=== PATIENT | male | born 1940 | race Caucasian/White ===

== ENCOUNTER → 2018-07-21 15:32 | Outpatient (CLI) | payer OTHER, SELFPAY ==
--- NOTE | 2018-07-21 | DI.RAD.S_ITS ---
PROCEDURE: XR CHEST 2V INDICATIONS: Cough TECHNIQUE: 2 views of the chest were acquired. COMPARISON: None. FINDINGS: Surgical changes and devices: None. Lungs and pleura: No pleural effusions or pneumothorax. Lungs are clear, with interstitial prominence. Mediastinum: Mediastinal contours are normal. Heart size is normal. Descending aorta is tortuous. Bones and chest wall: No suspicious bony abnormalities. Soft tissues appear unremarkable. IMPRESSION: Mild interstitial prominence and hyperinflated lungs in keeping with chronic obstructive physiology. No acute cardiopulmonary disease. Dictated by: Dominic Kidd [facility] Interpreted: Shahzad Null MD on 07/21/2018 at 15:53 Approved by: Shahzad Null M.D. on 07/21/2018 at 16:45
== END ==
PROVIDERS: PCP Family Medicine; Visit Provider Family Medicine
DX: R05 Cough (principal)
CPT/HCPCS: 71046

== ENCOUNTER → 2018-08-01 07:23 | Outpatient (CLI) | payer OTHER, SELFPAY ==
--- NOTE | 2018-08-08 14:31 | PM.PFT.1 ---
Pulmonary Function Test Referral & Results Date Patient Seen: 08/01/18 Requesting provider: Radha Watts Indication: COPD Results: The spirometry demonstrates an FVC of 4.29 L which is 106% of predicted. The FEV1 was measured at 2.54 L which is 87% of predicted. The FEV1/FVC ratio was 59 which is 82% of predicted. Following the administration of bronchodilator there was a 20% improvement in FEF 25-75%. Lung volumes show an SVC of 4.61 L which is 104% of predicted. The diffusing capacity was measured at 23.17 which is 71% of predicted. No hemoglobin value was provided, so no correction for potential anemia could be made, if appropriate. The maximum voluntary ventilation was normal Interpretation: This study demonstrates mild obstructive lung disease with some limited evidence of benefit following bronchodilator administration, primarily in small airway flow based on improvement in FEF 25-75% There is also mild abnormality at the capillary alveolar level based on diffusing capacity Clinical correlation suggested
== END ==
PROVIDERS: PCP Family Medicine; Visit Provider Family Medicine
DX: J44.9 Chronic obstructive pulmonary disease, unspecified (principal)
CPT/HCPCS: 94060; 94726; 94729

== ENCOUNTER → 2019-04-14 14:27 | Outpatient (CLI) | payer OTHER, SELFPAY ==
--- NOTE | 2019-04-14 | DI.US.S_ITS ---
PROCEDURE: US SCROTUM INDICATIONS: PAIN IN SCROTUM TECHNIQUE: Real-time scanning was performed of the scrotum and testicles, with image documentation. Color and pulse Doppler interrogation was performed of both testicles. COMPARISON: None. FINDINGS: Right: Testicle is normal in size at 4.6 x 2.4 x 2.0 cm, and homogenous in echotexture. Epididymis is normal in overall size and morphology. No hydrocele or varicoceles. Overlying scrotal skin is normal in thickness. Left: Testicle is normal in size at 3.2 x 2.8 x 1.9 cm, and homogeneous in echotexture. Epididymis is enlarged, heterogeneous with what appears to be multiloculated small fluid collection measuring 1.2 x 1.1 x 0.8 cm. Small punctate echogenic foci present within the fluid collection which could represent internal gas. No hydrocele or varicoceles. Overlying scrotal skin is normal in thickness. Doppler: Color and pulse Doppler demonstrate normal and symmetric arterial flow in both testicles. IMPRESSION: 1. Normal appearance of the testicles bilaterally. 2. Abnormal appearance of the left epididymis which is enlarged, heterogeneous, hypervascular with loculated appearing fluid collection which possibly contains gas. Developing epididymal abscess cannot be excluded and close clinical correlation and followup is recommended. Cindi Franks RN for Dr. Miranda was given the report and recommendations at 1627 hrs. 04/14/2019. Dictated by: Dominic CORREA Interpreted: Jaylin Sandoval MD on 04/14/2019 at 15:51 Approved by: Jaylin Sandoval MD, PhD on 04/14/2019 at 18:10
== END ==
PROVIDERS: PCP Family Medicine; Visit Provider Urology
DX: N50.82 Scrotal pain (principal)
CPT/HCPCS: 76870

== ENCOUNTER → 2019-09-24 11:55 | Outpatient (CLI) | payer OTHER, SELFPAY ==
--- NOTE | 2019-09-24 | DI.US.S_ITS ---
PROCEDURE: US SCROTUM INDICATIONS: TESTICULAR PAIN TECHNIQUE: Real-time scanning was performed of the scrotum and testicles, with image documentation. Color and pulse Doppler interrogation was performed of both testicles. COMPARISON: [facility], , US SCROTUM, 04/14/2019, 15:17. FINDINGS: Right: Testicle is normal in size at 4.2 x 1.6 x 2.8 cm, and homogenous in echotexture. Epididymis is normal in overall size and morphology. Mildly heterogeneous echotexture. Small 4 mm simple epididymal cyst is noted. No hydrocele or varicoceles. Overlying scrotal skin is normal in thickness. Left: Testicle is normal in size at 3.0 x 2.0 x 2.7 cm, and homogeneous in echotexture. Epididymis remains heterogeneous in echotexture and prominent in size with a persistent heterogeneous solid-appearing mass measuring 1.5 x 1.4 x 2.1 cm. There is internal vascularity. This is slightly increased in size compared to prior study which previously measured 1.2 x 1.1 x 0.8 cm. There are internal coarse and fine punctate echogenicities which may represent calcifications versus possible air. No hydrocele noted. Small varicoceles present. Overlying scrotal skin is normal in thickness. Doppler: Color and pulse Doppler demonstrate normal and symmetric arterial flow in both testicles. IMPRESSION: 1. Interval increase in size of a now more solid appearing epididymal/extratesticular mass with internal vascularity measuring up to 1.5 cm in size versus 1.2 cm previously. This was previously thought to represent a possible abscess; however, a neoplastic process is also included in the differential diagnosis given its persistence and enlargement over time. Persistent abscess remains a consideration given persistent symptoms/pain. Recommend further evaluation with urology consultation. 2. Small left varicocele. Dictated by: Jose Alfredo Diaz M.D. on 09/24/2019 at 22:32 Approved by: Jose Alfredo Diaz M.D. on 09/25/2019 at 14:18
== END ==
PROVIDERS: PCP Family Medicine; Visit Provider Urology
DX: N50.819 Testicular pain, unspecified (principal); N50.9 Disorder of male genital organs, unspecified; I86.1 Scrotal varices
CPT/HCPCS: 76870

== ENCOUNTER → 2019-10-12 13:29 | Outpatient (CLI) | payer OTHER, SELFPAY ==
--- NOTE | 2019-10-12 | DI.US.S_ITS ---
PROCEDURE: US SCROTUM INDICATIONS: TESTICULAR PAIN TECHNIQUE: Real-time scanning was performed of the scrotum and testicles, with image documentation. Color and pulse Doppler interrogation was performed of both testicles. COMPARISON: [facility], US SCROTUM, 04/14/2019, 15:17. [facility], , US SCROTUM, 09/24/2019, 12:23. FINDINGS: Right: Testicle is normal in size at 4.4 x 1.5 x 2.7 cm, and homogenous in echotexture. Incidental epididymal cyst/spermatocele measuring 5 x 4 x 4 mm. No hydrocele or varicoceles. Overlying scrotal skin is normal in thickness. Left: Testicle is normal in size at 4.0 x 1.6 x 2.4 cm, and homogeneous in echotexture. There is heterogeneous mass or thickening involving the epididymis with hyperemia. This measures 1.5 x 1.4 x 1.6 cm, previously 2.1 x 1.5 x 1.4 cm although intrinsic inter-examination variability may be a factor. No hydrocele. There is a varicocele measuring 4 mm. Overlying scrotal skin is normal in thickness. Doppler: Color and pulse Doppler demonstrate normal and symmetric arterial flow in both testicles. IMPRESSION: Left epididymal thickening versus mass as before. Hyperemic appearance is again noted. Differential remains infectious/inflammatory epididymitis and/or phlegmon although cannot exclude neoplasm. Please correlate clinically and with urinalysis data. Given long-term persistence, consider surgical management for definitive evaluation as clinically warranted. 4 mm left-sided varicocele 5 mm right epididymal cyst/spermatocele Dictated by: Shahzad Null M.D. on 10/12/2019 at 16:19 Approved by: Shahzad Null M.D. on 10/12/2019 at 16:26
== END ==
PROVIDERS: PCP Family Medicine; Referring Provider Urology; Visit Provider Urology
DX: N50.819 Testicular pain, unspecified (principal); I86.1 Scrotal varices; N50.3 Cyst of epididymis
CPT/HCPCS: 76870

== ENCOUNTER → 2019-11-03 07:52 | Outpatient (CLI) | payer OTHER, SELFPAY ==
--- NOTE | 2019-11-03 | DI.MRI.S_ITS ---
PROCEDURE: MR HEAD/BRAIN WO CON INDICATIONS: Mild cognitive impairment, so stated TECHNIQUE: Non-contrast axial T1 spin echo, axial T2 fast spin echo, sagittal and axial FLAIR, coronal T2 fast spin echo, axial gradient echo, axial diffusion and ADC through the brain. COMPARISON: None. FINDINGS: Image quality: Motion degraded examination CSF spaces: Ventricles appear symmetric in size and shape. Basal cisterns are patent. No extra-axial fluid collections. Brain: No intracranial bleeds or mass effects. There is cerebral volume loss for age. There are periventricular and deep white matter chronic small vessel ischemic changes. Brainstem appears normal. Diffusion-weighted images show no acute ischemic insults. No chronic ischemic insults. Normal intravascular flow voids are present. Skull and face: Calvarial bone marrow is normal in signal. Orbits are normal. Sinuses: Sinuses and mastoids are clear except for minimal left sphenoid sinus mucosal thickening.. IMPRESSION: Motion degraded examination No acute ischemia. No acute intracranial signal abnormality Diffuse small white matter changes, probably represent chronic microvascular ischemic disease, versus statistically less likely demyelination or other infectious, inflammatory, neurodegenerative etiology, technically nonspecific. Dictated by: Shahzad Null M.D. on 11/03/2019 at 9:14 Approved by: Shahzad Null M.D. on 11/03/2019 at 9:31
== END ==
PROVIDERS: PCP Family Medicine; Referring Provider Family Medicine; Visit Provider Family Medicine
DX: G31.84 Mild cognitive impairment of uncertain or unknown etiology
CPT/HCPCS: 70551

== ENCOUNTER 2019-12-09 15:04 | Emergency (ER) | payer OTHER, SELFPAY ==
[2019-12-09 15:05] VITALS: BP 184/84; PULSE 83; RESP 17; TEMP 36.5; O2SAT 100
[2019-12-09] MEDS: LIDOCAINE 2% (UROJET) 5 ML GEL TOP (15:20)
--- NOTE | 2019-12-09 15:40 | PC.NURSE ---
This RN attempt to place Villalta Catheter with Gomez MORRISON. unable to pass catheter into bladder. Together we attempted regular 16f catheter, 16 fr coude cath, and 14 fr. Unable to pass any. Provider notified.
--- NOTE | 2019-12-09 16:21 | PC.NURSE ---
attempted vail placement w/ lidocaine pre medication. Unable to pass vail to bladder.
[2019-12-09 16:28] LABS: Appearance Urine UA CLEAR; Bilirubin Urine UA NEGATIVE (NEGATIVE); Color Urine UA YELLOW; Glucose Urine UA NEGATIVE (Negative); Ketones Urine UA NEGATIVE (NEGATIVE); Leukocyte Esterase Urine UA 2+ (NEGATIVE); Nitrite Urine UA NEGATIVE (Negative); Occult Blood Urine UA 2+ (Negative); Protein Urine UA NEGATIVE (Negative); Urobilinogen Urine UA 0.2 E.U./dL (0.2)
[2019-12-09 16:38] LABS: Bacteria Urine Occasional (0-1); Culture Indicated Urine Specimen Cultured; RBC Urine 1-5/HPF (0-5/HPF); WBC Urine 1-5/HPF (0-5/HPF)
--- NOTE | 2019-12-09 16:38 | ED_ITS ---
HPI - Male Genitourinary <KUMAR Yuan - Last Filed: 12/09/19 17:21> General Chief complaint: Urogenital-Male Stated complaint: trouble urinating past few days Time Seen by Provider: 12/09/19 15:11 Source: patient Mode of arrival: Ambulatory Limitations: no limitations History of Present Illness HPI Narrative: The patient is an 79-year-old male current smoker with history of epididymal abscess who presents with a chief complaint of inability to urinate. He states that he has had urinary issues for the past several days better worse than usual. He tried to straight cath himself, but could not ?get the catheter in all the way.He states that he has been unable to drain any urine all day today. Denies any dysuria urgency or frequency. He does complain of lower abdominal pain, related to urinary retention. Related Data Home Medications Medication Instructions Recorded Confirmed hydrochlorothiazide Q DAY #0 07/21/16 simvastatin 20 mg PO QDAY #0 08/17/17 Previous Rx's Medication Instructions Recorded tamsulosin [Flomax] 0.4 mg PO QDAY #7 cap 08/16/17 Allergies Allergy/AdvReac Type Severity Reaction Status Date / Time No Known Allergies Allergy Uncoded 12/04/17 12:39 Review of Systems <KUMAR Yuan - Last Filed: 12/09/19 17:21> Review of Systems Narrative: GENERAL: Denies chills, fatigue, malaise, fever, sweats. HEENT: Denies sinus pain, ear pain, sore throat, difficulty swallowing, dizziness. RESPIRATORY: Denies dyspnea, cough, wheezing, hemoptysis, sputum. CARDIOVASCULAR: Denies chest pain, palpitations, orthopnea, edema, GASTROINTESTINAL: Denies nausea, vomiting, abdominal pain, diarrhea, constipation, melena. : See HPI MUSCULOSKELETAL: denies weakness, joint pain, or bony pain SKIN: Denies rash, skin lesions, or other NEUROLOGIC: Denies weakness, headache, numbness, change in speech, confusion, seizures, incoordination. PSYCHIATRIC: No concerning psychosocial issues. 12 point review of systems is negative except for those stated above Patient History <KUMAR Yuan - Last Filed: 12/09/19 17:21> Social History Smoking Status: Never smoker Smoking Status: Never smoker alcohol intake frequency: 0-2 drinks per day Substance Use Type: does not use Exam <KUMAR Yuan - Last Filed: 12/09/19 17:21> Narrative Exam Narrative: GENERAL: This is a well-nourished, well-developed patient, in no acute distress HEAD: Atraumatic. Normocephalic. No temporal or scalp tenderness. EYES: Pupils equal round and reactive. Extraocular motions intact. No scleral icterus. No injection or drainage. ENT: Nose without bleeding, purulent drainage or septal hematoma. Throat without erythema, tonsillar hypertrophy or exudate. Uvula midline. Airway patent. NECK: Trachea midline. No JVD or lymphadenopathy. Supple, nontender, no meningeal signs. CARDIOVASCULAR: Regular rate and rhythm RESPIRATORY: Clear to auscultation. Breath sounds equal bilaterally. No wheezes, rales, or rhonchi. No cough. No increased respiratory effort. No accessory muscle use. GASTROINTESTINAL: Abdomen soft, non-tender, nondistended. No hepato- splenomegaly, or palpable masses. No guarding. EXTREMITIES: No clubbing, cyanosis, or edema. No joint tenderness, effusion, or edema noted. BACK: Nontender without deformity or crepitance. No flank tenderness. NEURO: AOx3. SKIN: No rash or erythema visible skin Initial Vital Signs Initial Vital Signs: Vital Signs Temperature 97.7 F 12/09/19 15:05 Pulse Rate 83 12/09/19 15:05 Respiratory Rate 17 12/09/19 15:05 Blood Pressure 184/84 H 12/09/19 15:05 Pulse Oximetry 100 12/09/19 15:05 <Dimitris Castillo DO - Last Filed: 12/09/19 17:23> Initial Vital Signs Initial Vital Signs: Vital Signs Temperature 97.7 F 12/09/19 15:05 Pulse Rate 83 12/09/19 15:05 Respiratory Rate 17 12/09/19 15:05 Blood Pressure 184/84 H 12/09/19 15:05 Pulse Oximetry 100 12/09/19 15:05 Course <KUMAR Yuan - Last Filed: 12/09/19 17:21> Orders Ordered: ED Orders 12/09/19 16:14 Urinalysis and Microscopic Stat Urine Culture Stat Discontinued Medications Lidocaine HCl (Urojet) 5 ml TOP NOW ONE Stop: 12/09/19 15:41 Last Admin: 12/09/19 15:20 Dose: 5 ml Documented by: [email or web address] Vital Signs Vital signs: Vital Signs - 8 hr 12/09/19 15:05 12/09/19 17:07 Temperature 97.7 F Pulse Rate 83 86 Respiratory Rate 17 Blood Pressure 184/84 H 183/82 H Pulse Oximetry 100 99 <Dimitris Castillo DO - Last Filed: 12/09/19 17:23> Orders Ordered: ED Orders 12/09/19 16:14 Urinalysis and Microscopic Stat Urine Culture Stat Discontinued Medications Lidocaine HCl (Urojet) 5 ml TOP NOW ONE Stop: 12/09/19 15:41 Last Admin: 12/09/19 15:20 Dose: 5 ml Documented by: MIGUEL Vital Signs Vital signs: Vital Signs - 8 hr 12/09/19 15:05 12/09/19 17:07 Temperature 97.7 F Pulse Rate 83 86 Respiratory Rate 17 Blood Pressure 184/84 H 183/82 H Pulse Oximetry 100 99 MDM - Male Genitourinary <LEILA Yuan- - Last Filed: 12/09/19 17:21> Lab Data Labs: Lab Results 12/09/19 Range/Units 16:14 Urine Color Yellow Urine Appearance Clear Urine pH 7.0 (4.5-8.0) Ur Specific [place] 1.010 (1.000-1.035) Urine Protein Negative (Negative) Urine Glucose (UA) Negative (Negative) g/dL Urine Ketones Negative (NEGATIVE) Urine Occult Blood 2+ H (Negative) Urine Nitrate Negative (Negative) Urine Bilirubin Negative (NEGATIVE) Urine Urobilinogen 0.2 (0.2) E.U./dL Ur Leukocyte Esterase 2+ H (NEGATIVE) Urine RBC 1-5/hpf (0-5/HPF) Urine WBC 1-5/hpf (0-5/HPF) Urine Bacteria Occasional (0-1) (None) Ur Culture Indicated? Specimen cultured MDM Narrative Medical decision making narrative: The patient is an 79-year-old male who presents with a chief complaint of urinary retention. He is a patient of Dr Shane from [facility]. He several nurses had difficulty passing a catheter, so I spoke with her, who states that she recommended the patient be seen in clinic today for Villalta catheter placement. I spoke with Dr. Soriano from [facility] emergency department who accepted the patient for transfer by POV. Dr. Shane plan on seeing the patient in the emergency department. Patient state understanding and have no questions or concerns. EMTALA form filled out. <Dimitris Castillo DO - Last Filed: 12/09/19 17:23> Lab Data Labs: Lab Results 12/09/19 Range/Units 16:14 Urine Color Yellow Urine Appearance Clear Urine pH 7.0 (4.5-8.0) Ur Specific [place] 1.010 (1.000-1.035) Urine Protein Negative (Negative) Urine Glucose (UA) Negative (Negative) g/dL Urine Ketones Negative (NEGATIVE) Urine Occult Blood 2+ H (Negative) Urine Nitrate Negative (Negative) Urine Bilirubin Negative (NEGATIVE) Urine Urobilinogen 0.2 (0.2) E.U./dL Ur Leukocyte Esterase 2+ H (NEGATIVE) Urine RBC 1-5/hpf (0-5/HPF) Urine WBC 1-5/hpf (0-5/HPF) Urine Bacteria Occasional (0-1) (None) Ur Culture Indicated? Specimen cultured Discharge Plan Departure Patient Disposition: [facility] Clinical Impression: Urinary retention Discharge Date/Time: 12/09/19 17:10 Activity Restrictions/Additional Instructions: Thank you for trusting us with your care today. Please proceed to [facility] emergency department. I have spoken with Dr. Soriano and Dr. Shane regarding your care. They will be expecting you in the emergency department Prescriptions: No Action hydrochlorothiazide 25 MG tablet Q DAY Qty: 0 RF: 0 tamsulosin [Flomax] 0.4 MG capsule,extended release 24hr 0.4 mg PO QDAY Qty: 7 RF: 0 simvastatin 20 MG tablet 20 mg PO QDAY Qty: 0 RF: 0 Referrals: Radha Watts MD [Primary Care Provider] - <Dimitris Castillo DO - Last Filed: 12/09/19 17:23> Cosign ED Attending Cosignature Attestation: Dr Castillo Co-Sign Statement: I was available for consultation during this patient's emergency department visit. This chart is signed by myself for administrative purposes only. I did not have direct contact with this patient during this visit. They were seen independently by the APC.
[2019-12-09 17:07] VITALS: BP 183/82; PULSE 86; O2SAT 99
== END 2019-12-09 17:10 | disposition short-term general hospital (02) ==
PROVIDERS: Emergency Provider Nurse Practitioner Family; PCP Family Medicine; Referring Provider Urology
DX: R33.9 Retention of urine, unspecified (principal)
CPT/HCPCS: 81001; 87086; 99283

== ENCOUNTER → 2020-09-16 16:25 | Outpatient (CLI) | payer OTHER, SELFPAY ==
--- NOTE | 2020-09-16 | DI.MRI.S_ITS ---
PROCEDURE: MR HEAD/BRAIN WO CON INDICATIONS: Mild cognitive impairment, so stated TECHNIQUE: Non-contrast axial T1 spin echo, axial T2 fast spin echo, sagittal and axial FLAIR, coronal T2 fast spin echo, axial gradient echo, axial diffusion and ADC through the brain. COMPARISON: [facility], , MR HEAD/BRAIN WO CON, 11/03/2019, 8:37. FINDINGS: Image quality: Excellent. CSF spaces: Ventricles appear symmetric in size and shape. Basal cisterns are patent. No extra-axial fluid collections. Brain: No intracranial bleeds or mass effects. There is cerebral volume loss for age. There are periventricular and deep white matter chronic small vessel ischemic changes. Brainstem appears normal. Diffusion-weighted images show no acute ischemic insults. No chronic ischemic insults. Normal intravascular flow voids are present. Skull and face: Calvarial bone marrow is normal in signal. Orbits are normal. Note is made of bilateral lens replacements. Sinuses: Moderate mucosal thickening is seen within the ethmoid air cells. The paranasal sinuses otherwise appear clear. No abnormal fluid is seen within the mastoid air cells. IMPRESSION: Stable intracranial study demonstrating brain parenchymal volume loss and chronic small vessel ischemic change. Incidental note is made of: Lens replacements Focal ethmoid air cell disease. Dictated by: Naldo Ruby M.D. on 09/16/2020 at 16:58 Approved by: Naldo Ruby M.D. on 09/16/2020 at 17:00
== END ==
PROVIDERS: PCP Family Medicine; Referring Provider Family Medicine; Visit Provider Family Medicine
DX: G31.84 Mild cognitive impairment of uncertain or unknown etiology (principal)
CPT/HCPCS: 70551